=== PATIENT | female | born 1945 | race Caucasian/White ===

== ENCOUNTER 2020-08-07 21:47 | Observation (INO) ==
[2020-08-07] MEDS ORDERED: Ringers Solution, Lactated 1,000 ML IVC SCH (23:45)
[2020-08-07] MEDS ORDERED: Naloxone 0.4 MG/ML INJ IVP PRN (23:49)
[2020-08-07] MEDS ORDERED: Ondansetron 4 MG/2 ML VIAL IVP PRN (23:49)
[2020-08-07] MEDS ORDERED: Acetaminophen 325 MG TABLET PO PRN (23:49)
[2020-08-08] MEDS ORDERED: Ipratropium/Albuterol Neb 3 ML IH PRN (00:43)
[2020-08-08] MEDS ORDERED: Azithromycin 500 MG in 0.9 % Sodium Chloride 250 ML IVPB SCH (01:00)
[2020-08-08 01:17] LABS: Basophils % 0.2 %; Eosinophils % 0.1 %; Hematocrit 34.1 % (35.3-44.9); Hemoglobin 10.5 g/dL (11.5-15.4); Immature Granulocytes % 0.6 % (0-4); Lymphocytes # 1.1 K/mcL (0.6-4.6); Lymphocytes % 6.1 %; Mean Corpuscular HGB Conc 30.8 g/dL (31.6-35.5); Mean Corpuscular Hemoglobin 29.6 pg (28.0-33.3); Mean Corpuscular Volume 96.1 fL (83.0-100.0); Mean Platelet Volume 9.7 fL (9.4-12.4); Monocytes # 1.3 K/mcL (0.0-1.3); Monocytes % 7.5 %; Neutrophils # 15.2 K/mcL (1.6-8.9); Platelet Count 378 K/mcL (140-400); Red Blood Count 3.55 M/mcL (3.82-4.97); Red Cell Distribution Width 13.7 % (11.5-14.5); Segmented Neutrophils % 85.5 %; White Blood Count 17.8 K/mcL (4.3-11.1)
[2020-08-08 01:24] LABS: INR 1.3; Prothrombin Time 14.9 Seconds (9.4-12.1)
[2020-08-08 01:39] LABS: Albumin 2.5 g/dL (3.5-5.7); Albumin/Globulin Ratio 0.6 (1.1-2.2); Bilirubin,Total 0.4 mg/dL (0.3-1.0); Calcium 7.7 mg/dL (8.6-10.3); Chol/HDL Ratio 3.6 (0-4.9); Globulin 4.5 g/dL (2.4-3.5); Magnesium 1.6 mg/dL (1.6-2.6); Potassium 4.2 mEq/L (3.5-5.1)
[2020-08-08 07:49] LABS: Adenovirus Not Detected (Not Detect); Bordetella Pertussis Not Detected (Not Detect); Chlamydophila pneumoniae Not Detected (Not Detect); Coronavirus 229E Not Detected (Not Detect); Coronavirus HKU1 Not Detected (Not Detect); Coronavirus NL63 Not Detected (Not Detect); Coronavirus OC43 Not Detected (Not Detect); Human Metapneumovirus Not Detected (Not Detect); Human Rhinovirus/Enterovirus Not Detected (Not Detect); Influenza A Subtype 2009 H1 Not Detected (Not Detect); Influenza B Not Detected (Not Detect); Mycoplasma pneumoniae Not Detected (Not Detect); Parainfluenza Virus 1 Not Detected (Not Detect); Parainfluenza Virus 2 Not Detected (Not Detect); Parainfluenza Virus 3 Not Detected (Not Detect); Parainfluenza Virus 4 Not Detected (Not Detect); Respiratory Syncytial Virus Not Detected (Not Detect); SARS-CoV-2 Not Detected (Not Detect)
[2020-08-08] MEDS: cefTRIAXone 1,000 MG in Water for inj. (sterile) 10 ML IVP SCH (09:14)
[2020-08-08] MEDS: *HR* OxyCODONE/APAP 10/325 TABLET PO PRN ×2 (09:27→16:57)
[2020-08-08] MEDS: Famotidine 20 MG TABLET PO SCH (09:27)
[2020-08-08] MEDS: carvediloL 25 MG TABLET PO SCH ×2 (09:28→18:13)
[2020-08-08] MEDS: predniSONE 20 MG TABLET PO SCH (10:25)
[2020-08-08] MEDS: Tiotropium 10 INH DOSE IH SCH (11:14)
[2020-08-08] MEDS: Budesonide/Formoterol 160/4.5 1 PUFF INH IH SCH ×2 (11:19→21:29)
[2020-08-08 15:47] LABS: Total Protein 6.1 g/dL (6.4-8.9)
[2020-08-08] MEDS ORDERED: 0.9 % Sodium Chloride 500 ML IV ONE (16:51)
[2020-08-08] MEDS: *HR* Heparin 5,000 UNIT/ML VIAL SQ SCH (18:13)
[2020-08-08] MEDS: Azithromycin 500 MG in 0.9 % Sodium Chloride 250 ML IVPB SCH (18:14)
[2020-08-08] MEDS: Mirtazapine 15 MG TABLET PO SCH (20:15)
[2020-08-08] MEDS: Melatonin 3 MG TABLET PO SCH (20:15)
[2020-08-09 04:29] LABS: Basophils % 0.1 %; Hematocrit 28.1 % (35.3-44.9); Hemoglobin 8.7 g/dL (11.5-15.4); Immature Granulocytes % 0.9 % (0-4); Lymphocytes # 0.7 K/mcL (0.6-4.6); Lymphocytes % 4.1 %; Mean Corpuscular Hemoglobin 29.9 pg (28.0-33.3); Mean Corpuscular Volume 96.6 fL (83.0-100.0); Mean Platelet Volume 9.9 fL (9.4-12.4); Monocytes # 0.8 K/mcL (0.0-1.3); Monocytes % 4.8 %; Neutrophils # 14.2 K/mcL (1.6-8.9); Platelet Count 315 K/mcL (140-400); Red Blood Count 2.91 M/mcL (3.82-4.97); Red Cell Distribution Width 13.7 % (11.5-14.5); Segmented Neutrophils % 90.1 %; White Blood Count 15.8 K/mcL (4.3-11.1)
[2020-08-09 04:44] LABS: Calcium 7.1 mg/dL (8.6-10.3); Potassium 3.9 mEq/L (3.5-5.1)
[2020-08-09] MEDS: *HR* Heparin 5,000 UNIT/ML VIAL SQ SCH ×2 (05:38→18:44)
[2020-08-09 08:48] LABS: VBG Ionized Calcium 1.01 mmol/L (1.15-1.35)
[2020-08-09] MEDS: Famotidine 20 MG TABLET PO SCH (08:56)
[2020-08-09] MEDS: predniSONE 20 MG TABLET PO SCH (08:57)
[2020-08-09] MEDS: carvediloL 25 MG TABLET PO SCH ×2 (08:57→16:41)
[2020-08-09] MEDS: Chlorhexidine Rinse 15 ML MOUTHWASH PO SCH (08:57)
[2020-08-09] MEDS: Aspirin Enteric Coated 81 MG Tablet PO SCH (08:57)
[2020-08-09] MEDS: cefTRIAXone 1,000 MG in Water for inj. (sterile) 10 ML IVP SCH (08:57)
[2020-08-09] MEDS: *HR* OxyCODONE/APAP 10/325 TABLET PO PRN ×2 (09:04→21:55)
[2020-08-09] MEDS: Tiotropium 10 INH DOSE IH SCH (10:18)
[2020-08-09] MEDS: Budesonide/Formoterol 160/4.5 1 PUFF INH IH SCH ×2 (10:19→19:59)
[2020-08-09 17:11] LABS: Bacteria,Urine Few per hpf (None-Few); Bilirubin,Urine Negative (Negative); Blood,Urine Negative (Negative); Clarity,Urine Clear (Clear); Color,Urine Light-Yellow (Yellow); Glucose,Urine (UA) Normal (Normal); Hyaline Casts,Urine Few per lpf (None Seen); Ketones,Urine Negative (Negative); Leukocyte Esterase,Urine Negative (Negative); Mucus,Urine Few per lpf (None-Few); Nitrite,Urine Negative (Negative); PH,Urine 5.5 pH Units (5.0-8.0); Protein,Urine 50 mg/dL (Neg-Trace); RBC,Urine 0-3 per hpf (0-3); Specific Gravity,Urine 1.027 (1.010-1.025); Squamous Epithelial Cell,Urine Few per hpf (None-Few); Urobilinogen,Urine Normal (Normal); WBC,Urine 0-3 per hpf (0-3)
[2020-08-09 17:13] LABS: Protein/Creatinine Ratio,Urine 0.85 mg/mg (0.00-0.20); Sodium, Urine 19.8 mEq/L
[2020-08-09] MEDS: Azithromycin 500 MG in 0.9 % Sodium Chloride 250 ML IVPB SCH (18:43)
[2020-08-09] MEDS: Mirtazapine 15 MG TABLET PO SCH (21:54)
[2020-08-09] MEDS: Melatonin 3 MG TABLET PO SCH (21:54)
[2020-08-10] MEDS: *HR* Heparin 5,000 UNIT/ML VIAL SQ SCH ×2 (05:06→17:23)
[2020-08-10] MEDS: *HR* OxyCODONE/APAP 10/325 TABLET PO PRN ×3 (05:17→23:06)
[2020-08-10 05:19] LABS: Basophils % 0.2 %; Hemoglobin 9.2 g/dL (11.5-15.4); Immature Granulocytes % 1.1 % (0-4); Lymphocytes # 1.1 K/mcL (0.6-4.6); Lymphocytes % 6.7 %; Mean Corpuscular HGB Conc 30.7 g/dL (31.6-35.5); Mean Corpuscular Hemoglobin 29.5 pg (28.0-33.3); Mean Corpuscular Volume 96.2 fL (83.0-100.0); Mean Platelet Volume 9.9 fL (9.4-12.4); Monocytes # 0.9 K/mcL (0.0-1.3); Monocytes % 5.3 %; Neutrophils # 14.4 K/mcL (1.6-8.9); Platelet Count 373 K/mcL (140-400); Red Blood Count 3.12 M/mcL (3.82-4.97); Red Cell Distribution Width 13.8 % (11.5-14.5); Segmented Neutrophils % 86.7 %; White Blood Count 16.6 K/mcL (4.3-11.1)
[2020-08-10 05:39] LABS: BUN/Creatinine Ratio 42 (6-26); Blood Urea Nitrogen 42 mg/dL (8-23); Calcium 8.2 mg/dL (8.6-10.3); Carbon Dioxide 23 mEq/L (23-29); Chloride 106 mEq/L (98-107); Glucose 89 mg/dL (70-105); Osmolality,Calculated 296 (280-300); Potassium 3.9 mEq/L (3.5-5.1); Sodium 138 mEq/L (136-145); eGFR For African Americans > 60 (> 60); eGFR For Non-African Americans 54 (> 60)
[2020-08-10] MEDS: Aspirin Enteric Coated 81 MG Tablet PO SCH (09:26)
[2020-08-10] MEDS: Chlorhexidine Rinse 15 ML MOUTHWASH PO SCH (09:26)
[2020-08-10] MEDS: cefTRIAXone 1,000 MG in Water for inj. (sterile) 10 ML IVP SCH (09:26)
[2020-08-10] MEDS: predniSONE 20 MG TABLET PO SCH (09:27)
[2020-08-10] MEDS: Famotidine 20 MG TABLET PO SCH (09:27)
[2020-08-10] MEDS: carvediloL 25 MG TABLET PO SCH ×2 (09:27→17:17)
[2020-08-10] MEDS: Tiotropium 10 INH DOSE IH SCH (10:56)
[2020-08-10] MEDS: Budesonide/Formoterol 160/4.5 1 PUFF INH IH SCH ×2 (10:56→19:48)
[2020-08-10] MEDS ORDERED: Azithromycin 250 MG TABLET PO SCH (18:00)
[2020-08-10] MEDS: Melatonin 3 MG TABLET PO SCH (20:21)
[2020-08-10] MEDS: Mirtazapine 15 MG TABLET PO SCH (20:21)
[2020-08-11 04:24] LABS: Basophils % 0.1 %; Eosinophils % 0.1 %; Hematocrit 30.6 % (35.3-44.9); Hemoglobin 9.3 g/dL (11.5-15.4); Lymphocytes # 1.5 K/mcL (0.6-4.6); Lymphocytes % 10.2 %; Mean Corpuscular HGB Conc 30.4 g/dL (31.6-35.5); Mean Corpuscular Hemoglobin 29.2 pg (28.0-33.3); Mean Corpuscular Volume 96.2 fL (83.0-100.0); Mean Platelet Volume 9.7 fL (9.4-12.4); Monocytes # 0.9 K/mcL (0.0-1.3); Monocytes % 6.4 %; Neutrophils # 11.7 K/mcL (1.6-8.9); Platelet Count 380 K/mcL (140-400); Red Blood Count 3.18 M/mcL (3.82-4.97); Red Cell Distribution Width 13.7 % (11.5-14.5); Segmented Neutrophils % 82.2 %; White Blood Count 14.3 K/mcL (4.3-11.1)
[2020-08-11 04:42] LABS: Alanine Aminotransferase 45 Units/L (7-52); Albumin 2.3 g/dL (3.5-5.7); Albumin/Globulin Ratio 0.6 (1.1-2.2); Alkaline Phosphatase 57 Units/L (34-104); Aspartate Amino Transferase 89 Units/L (13-39); BUN/Creatinine Ratio 37 (6-26); Bilirubin,Total 0.3 mg/dL (0.3-1.0); Blood Urea Nitrogen 34 mg/dL (8-23); Calcium 8.2 mg/dL (8.6-10.3); Carbon Dioxide 24 mEq/L (23-29); Chloride 106 mEq/L (98-107); Globulin 3.7 g/dL (2.4-3.5); Glucose 86 mg/dL (70-105); Osmolality,Calculated 295 (280-300); Sodium 139 mEq/L (136-145); eGFR For African Americans > 60 (> 60); eGFR For Non-African Americans 60 (> 60)
[2020-08-11] MEDS: *HR* Heparin 5,000 UNIT/ML VIAL SQ SCH ×2 (05:43→17:23)
[2020-08-11] MEDS: Tiotropium 10 INH DOSE IH SCH (07:38)
[2020-08-11] MEDS: Budesonide/Formoterol 160/4.5 1 PUFF INH IH SCH ×2 (07:38→20:06)
[2020-08-11] MEDS: Chlorhexidine Rinse 15 ML MOUTHWASH PO SCH (08:49)
[2020-08-11] MEDS: predniSONE 20 MG TABLET PO SCH (08:49)
[2020-08-11] MEDS: Aspirin Enteric Coated 81 MG Tablet PO SCH (08:50)
[2020-08-11] MEDS: cefTRIAXone 1,000 MG in Water for inj. (sterile) 10 ML IVP SCH (08:50)
[2020-08-11] MEDS: carvediloL 25 MG TABLET PO SCH ×2 (08:50→17:26)
[2020-08-11] MEDS: Famotidine 20 MG TABLET PO SCH (08:50)
[2020-08-11] MEDS: *HR* OxyCODONE/APAP 10/325 TABLET PO PRN ×2 (09:02→21:17)
[2020-08-11] MEDS ORDERED: Isovue-370 500 ML BOTTLE IVP ONE (13:49)
[2020-08-11] MEDS: Piperacillin/Tazobactam 3.375 GM in 0.9 % Sodium Chloride Mini Bag 100 ML IVPB SCH (17:43)
[2020-08-11] MEDS: Melatonin 3 MG TABLET PO SCH (21:12)
[2020-08-11] MEDS: Mirtazapine 15 MG TABLET PO SCH (21:13)
[2020-08-12] MEDS: Piperacillin/Tazobactam 3.375 GM in 0.9 % Sodium Chloride Mini Bag 100 ML IVPB SCH ×2 (00:30→11:20)
[2020-08-12 05:20] LABS: INR 1.1; Prothrombin Time 12.6 Seconds (9.4-12.1)
[2020-08-12 05:23] LABS: Basophils % 0.2 %; Eosinophils % 0.1 %; Hematocrit 31.8 % (35.3-44.9); Hemoglobin 9.6 g/dL (11.5-15.4); Lymphocytes # 1.7 K/mcL (0.6-4.6); Lymphocytes % 12.4 %; Mean Corpuscular HGB Conc 30.2 g/dL (31.6-35.5); Mean Corpuscular Hemoglobin 29.4 pg (28.0-33.3); Mean Corpuscular Volume 97.2 fL (83.0-100.0); Mean Platelet Volume 9.9 fL (9.4-12.4); Monocytes # 1.1 K/mcL (0.0-1.3); Monocytes % 8.2 %; Neutrophils # 10.5 K/mcL (1.6-8.9); Platelet Count 357 K/mcL (140-400); Red Blood Count 3.27 M/mcL (3.82-4.97); Red Cell Distribution Width 13.8 % (11.5-14.5); Segmented Neutrophils % 78.1 %; White Blood Count 13.5 K/mcL (4.3-11.1)
[2020-08-12 05:34] LABS: BUN/Creatinine Ratio 32 (6-26); Blood Urea Nitrogen 31 mg/dL (8-23); Calcium 8.4 mg/dL (8.6-10.3); Carbon Dioxide 27 mEq/L (23-29); Chloride 102 mEq/L (98-107); Glucose 81 mg/dL (70-105); Osmolality,Calculated 290 (280-300); Potassium 3.8 mEq/L (3.5-5.1); Sodium 137 mEq/L (136-145); eGFR For African Americans > 60 (> 60); eGFR For Non-African Americans 56 (> 60)
[2020-08-12] MEDS: *HR* Heparin 5,000 UNIT/ML VIAL SQ SCH ×2 (05:43→17:04)
[2020-08-12] MEDS ORDERED: *HR* EPINEPHrine 1 MG/10 ML SYRINGE INTRATRACH PRN (09:48)
[2020-08-12] MEDS: predniSONE 20 MG TABLET PO SCH (11:19)
[2020-08-12] MEDS: carvediloL 25 MG TABLET PO SCH ×2 (11:19→15:50)
[2020-08-12] MEDS: Aspirin Enteric Coated 81 MG Tablet PO SCH (11:19)
[2020-08-12] MEDS: Famotidine 20 MG TABLET PO SCH (11:19)
[2020-08-12] MEDS: Chlorhexidine Rinse 15 ML MOUTHWASH PO SCH (11:20)
[2020-08-12] MEDS: *HR* OxyCODONE/APAP 10/325 TABLET PO PRN ×2 (11:21→20:26)
[2020-08-12] MEDS: Budesonide/Formoterol 160/4.5 1 PUFF INH IH SCH ×2 (11:51→20:11)
[2020-08-12] MEDS: Tiotropium 10 INH DOSE IH SCH (11:51)
[2020-08-12] MEDS ORDERED: *HR* EPINEPHrine 1 MG/10 ML SYRINGE ONE (12:00)
[2020-08-12] MEDS ORDERED: levoFLOXacin 750 MG TABLET PO SCH (14:00)
[2020-08-12] MEDS: levoFLOXacin 750 MG TABLET PO SCH (14:21)
[2020-08-12] MEDS ORDERED: 0.9 % Sodium Chloride 500 ML IVC ONE (14:30)
[2020-08-12] MEDS ORDERED: 0.9 % Sodium Chloride 1,000 ML IVC SCH (15:45)
[2020-08-12] MEDS ORDERED: 0.9 % Sodium Chloride 500 ML IVC SCH (15:52)
[2020-08-12] MEDS ORDERED: Perflutren Lipid Microsphere 1.3 ML in 0.9 % Sodium Chloride 8.7 ML IVP PRN (18:41)
[2020-08-12 19:32] LABS: Appearance of Body Fluid Cloudy (Clear); Volume of Body Fluid 9 mL
[2020-08-12 19:39] LABS: Appearance of Body Fluid Clear (Clear); Volume of Body Fluid 14 mL
[2020-08-12 20:21] LABS: Appearance of Body Fluid Cloudy (Clear); Volume of Body Fluid 17 mL
[2020-08-12] MEDS ORDERED: Lidocaine -MPF 2% 5 ML VIAL SQ ONE (23:36)
[2020-08-12] MEDS ORDERED: *HR* Succinylcholine 200 MG/10 ML VIAL IVP ONE (23:36)
[2020-08-12] MEDS ORDERED: *HR* Metoprolol 5 MG/5 ML VIAL IVP ONE (23:36)
[2020-08-12] MEDS ORDERED: Lidocaine -MPF 4% 5 ML AMPUL TP ONE (23:36)
[2020-08-12] MEDS ORDERED: *HR* Propofol 200 MG/20 ML VIAL IVP ONE (23:36)
[2020-08-12] MEDS ORDERED: *HR* Phenylephrine 10 MG/ML VIAL IVC ONE (23:36)
[2020-08-13] MEDS: Mirtazapine 15 MG TABLET PO SCH ×2 (00:25→20:13)
[2020-08-13] MEDS: *HR* OxyCODONE/APAP 10/325 TABLET PO PRN ×3 (05:56→20:13)
[2020-08-13] MEDS: *HR* Heparin 5,000 UNIT/ML VIAL SQ SCH ×2 (05:56→17:16)
[2020-08-13 06:57] LABS: Basophils % 0.2 %; Hematocrit 30.5 % (35.3-44.9); Hemoglobin 9.4 g/dL (11.5-15.4); Immature Granulocytes % 1.2 % (0-4); Lymphocytes # 1.6 K/mcL (0.6-4.6); Mean Corpuscular HGB Conc 30.8 g/dL (31.6-35.5); Mean Corpuscular Hemoglobin 28.9 pg (28.0-33.3); Mean Corpuscular Volume 93.8 fL (83.0-100.0); Mean Platelet Volume 9.9 fL (9.4-12.4); Monocytes # 1.3 K/mcL (0.0-1.3); Monocytes % 7.8 %; Neutrophils # 14.1 K/mcL (1.6-8.9); Platelet Count 396 K/mcL (140-400); Red Blood Count 3.25 M/mcL (3.82-4.97); Segmented Neutrophils % 81.8 %; White Blood Count 17.3 K/mcL (4.3-11.1)
[2020-08-13] MEDS: predniSONE 20 MG TABLET PO SCH (07:33)
[2020-08-13] MEDS: Aspirin Enteric Coated 81 MG Tablet PO SCH (07:33)
[2020-08-13] MEDS: carvediloL 25 MG TABLET PO SCH ×2 (07:33→17:15)
[2020-08-13] MEDS: Famotidine 20 MG TABLET PO SCH (07:34)
[2020-08-13] MEDS: Chlorhexidine Rinse 15 ML MOUTHWASH PO SCH (07:34)
[2020-08-13 09:36] LABS: VBG Ionized Calcium 1.04 mmol/L (1.15-1.35)
[2020-08-13] MEDS: Budesonide/Formoterol 160/4.5 1 PUFF INH IH SCH ×2 (10:32→23:00)
[2020-08-13] MEDS: Tiotropium 10 INH DOSE IH SCH (10:33)
[2020-08-13] MEDS: Doxycycline 100 MG CAPSULE PO SCH ×2 (11:28→20:13)
[2020-08-13] MEDS: Melatonin 3 MG TABLET PO SCH (20:14)
[2020-08-14] MEDS: *HR* Heparin 5,000 UNIT/ML VIAL SQ SCH ×2 (05:47→16:54)
[2020-08-14] MEDS: Tiotropium 10 INH DOSE IH SCH (07:51)
[2020-08-14] MEDS: Budesonide/Formoterol 160/4.5 1 PUFF INH IH SCH ×2 (07:51→21:28)
[2020-08-14] MEDS: Doxycycline 100 MG CAPSULE PO SCH ×2 (08:24→21:00)
[2020-08-14] MEDS: *HR* OxyCODONE/APAP 10/325 TABLET PO PRN ×3 (08:24→23:43)
[2020-08-14] MEDS: Famotidine 20 MG TABLET PO SCH (08:24)
[2020-08-14] MEDS: carvediloL 25 MG TABLET PO SCH ×2 (08:25→16:53)
[2020-08-14] MEDS: Aspirin Enteric Coated 81 MG Tablet PO SCH (08:26)
[2020-08-14] MEDS: predniSONE 20 MG TABLET PO SCH (08:27)
[2020-08-14] MEDS ORDERED: NON-FORMULARY MEDICATION 1 EACH EACH (Duloxetine Hcl 60 MG) PO SCH (09:00)
[2020-08-14 09:44] LABS: Basophils % 0.2 %; Eosinophils # 0.1 K/mcL (0.0-0.6); Eosinophils % 0.3 %; Hemoglobin 10.8 g/dL (11.5-15.4); Immature Granulocytes % 1.2 % (0-4); Lymphocytes # 2.4 K/mcL (0.6-4.6); Lymphocytes % 14.1 %; Mean Corpuscular HGB Conc 30.9 g/dL (31.6-35.5); Mean Corpuscular Hemoglobin 28.8 pg (28.0-33.3); Mean Corpuscular Volume 93.3 fL (83.0-100.0); Mean Platelet Volume 9.9 fL (9.4-12.4); Monocytes # 1.4 K/mcL (0.0-1.3); Monocytes % 8.3 %; Neutrophils # 12.8 K/mcL (1.6-8.9); Platelet Count 427 K/mcL (140-400); Red Blood Count 3.75 M/mcL (3.82-4.97); Red Cell Distribution Width 13.9 % (11.5-14.5); Segmented Neutrophils % 75.9 %; White Blood Count 16.9 K/mcL (4.3-11.1)
[2020-08-14] MEDS: predniSONE 10 MG TABLET PO SCH (12:33)
[2020-08-14] MEDS: levoFLOXacin 750 MG TABLET PO SCH (12:41)
[2020-08-14] MEDS: Chlorhexidine Rinse 15 ML MOUTHWASH PO SCH (12:41)
[2020-08-14] MEDS ORDERED: Furosemide 20 MG/2 ML VIAL IVP ONE (16:08)
[2020-08-14] MEDS: Melatonin 3 MG TABLET PO SCH (21:00)
[2020-08-14] MEDS: Mirtazapine 15 MG TABLET PO SCH (21:01)
[2020-08-15 01:53] LABS: Basophils % 0.1 %; Hematocrit 30.9 % (35.3-44.9); Hemoglobin 9.7 g/dL (11.5-15.4); Immature Granulocytes % 1.7 % (0-4); Lymphocytes # 1.2 K/mcL (0.6-4.6); Lymphocytes % 8.7 %; Mean Corpuscular HGB Conc 31.4 g/dL (31.6-35.5); Mean Corpuscular Hemoglobin 29.3 pg (28.0-33.3); Mean Corpuscular Volume 93.4 fL (83.0-100.0); Mean Platelet Volume 9.7 fL (9.4-12.4); Monocytes # 1.1 K/mcL (0.0-1.3); Monocytes % 7.5 %; Neutrophils # 11.7 K/mcL (1.6-8.9); Platelet Count 379 K/mcL (140-400); Red Blood Count 3.31 M/mcL (3.82-4.97); Red Cell Distribution Width 13.9 % (11.5-14.5); White Blood Count 14.2 K/mcL (4.3-11.1)
[2020-08-15] MEDS: *HR* Heparin 5,000 UNIT/ML VIAL SQ SCH (05:50)
[2020-08-15] MEDS: *HR* OxyCODONE/APAP 10/325 TABLET PO PRN (05:50)
[2020-08-15] MEDS: Budesonide/Formoterol 160/4.5 1 PUFF INH IH SCH (08:10)
[2020-08-15] MEDS: Tiotropium 10 INH DOSE IH SCH (08:13)
[2020-08-15] MEDS: Chlorhexidine Rinse 15 ML MOUTHWASH PO SCH (08:55)
[2020-08-15] MEDS: carvediloL 25 MG TABLET PO SCH ×2 (08:55→17:12)
[2020-08-15] MEDS: Aspirin Enteric Coated 81 MG Tablet PO SCH (08:55)
[2020-08-15] MEDS: predniSONE 10 MG TABLET PO SCH (08:56)
[2020-08-15] MEDS: Doxycycline 100 MG CAPSULE PO SCH (08:56)
[2020-08-15] MEDS ORDERED: lisinopriL 5 MG TABLET PO SCH (09:00)
[2020-08-15] MEDS ORDERED: Famotidine 20 MG TABLET PO SCH (09:00)
[2020-08-15 10:49] VITALS: BP 108/71
== END 2020-08-15 17:50 | disposition home health service (06) ==
LOC: 3ANU → UNMERGE 23:35 → SUATTDRO 23:35 → MERGE 23:35
PROVIDERS: ADMIT Student in an Organized Health Care Education/Training Program; ATTEND Internal Medicine

== ENCOUNTER 2020-08-22 22:08 | Inpatient (IN) ==
[2020-08-22] MEDS ORDERED: Naloxone 0.4 MG/ML INJ IVP PRN (23:53)
[2020-08-22] MEDS ORDERED: Ondansetron ODT 4 MG TAB.RAPDIS SL PRN (23:53)
[2020-08-23] MEDS ORDERED: Ipratropium/Albuterol Neb 3 ML IH PRN (01:53)
[2020-08-23] MEDS ORDERED: levoFLOXacin 750 MG/150 ML 750 MG/150 ML BAG IVPB SCH (02:00)
[2020-08-23 02:09] LABS: Adenovirus Not Detected (Not Detect); Bordetella Pertussis Not Detected (Not Detect); Chlamydophila pneumoniae Not Detected (Not Detect); Coronavirus 229E Not Detected (Not Detect); Coronavirus HKU1 Not Detected (Not Detect); Coronavirus NL63 Not Detected (Not Detect); Coronavirus OC43 Not Detected (Not Detect); Human Metapneumovirus Not Detected (Not Detect); Human Rhinovirus/Enterovirus Not Detected (Not Detect); Influenza A Subtype 2009 H1 Not Detected (Not Detect); Influenza B Not Detected (Not Detect); Mycoplasma pneumoniae Not Detected (Not Detect); Parainfluenza Virus 1 Not Detected (Not Detect); Parainfluenza Virus 2 Not Detected (Not Detect); Parainfluenza Virus 3 Not Detected (Not Detect); Parainfluenza Virus 4 Not Detected (Not Detect); Respiratory Syncytial Virus Not Detected (Not Detect); SARS-CoV-2 Not Detected (Not Detect)
[2020-08-23] MEDS: 0.9 % Sodium Chloride 1,000 ML IVC SCH ×2 (03:00→18:44)
[2020-08-23] MEDS: Acetaminophen 325 MG TABLET PO PRN (04:51)
[2020-08-23] MEDS: MethylPREDNISolone 40 MG/ML VIAL IVP SCH ×2 (05:54→18:45)
[2020-08-23] MEDS ORDERED: Piperacillin/Tazobactam 3.375 GM in 0.9 % Sodium Chloride Mini Bag 100 ML IVPB SCH (06:00)
[2020-08-23] MEDS ORDERED: 0.9 % Sodium Chloride 500 ML IVC ONE (08:01)
[2020-08-23] MEDS ORDERED: Albuterol 2.5 MG/3 ML NEBULIZER IH PRN (08:02)
[2020-08-23 08:10] LABS: Basophils % 0.1 %; Hematocrit 33.3 % (35.3-44.9); Hemoglobin 10.5 g/dL (11.5-15.4); Immature Granulocytes % 0.5 % (0-4); Lymphocytes # 0.5 K/mcL (0.6-4.6); Lymphocytes % 2.3 %; Mean Corpuscular HGB Conc 31.5 g/dL (31.6-35.5); Mean Corpuscular Volume 95.1 fL (83.0-100.0); Mean Platelet Volume 10.1 fL (9.4-12.4); Monocytes # 0.8 K/mcL (0.0-1.3); Monocytes % 3.8 %; Neutrophils # 20.3 K/mcL (1.6-8.9); Platelet Count 307 K/mcL (140-400); Red Cell Distribution Width 14.8 % (11.5-14.5); Segmented Neutrophils % 93.3 %; White Blood Count 21.7 K/mcL (4.3-11.1)
[2020-08-23 08:21] LABS: Albumin/Globulin Ratio 0.9 (1.1-2.2); Bilirubin,Total 0.8 mg/dL (0.3-1.0); Calcium 7.6 mg/dL (8.6-10.3); Chol/HDL Ratio 2.3 (0-4.9); Globulin 2.3 g/dL (2.4-3.5); Magnesium 1.8 mg/dL (1.6-2.6); Phosphorous 4.3 mg/dL (2.7-4.5); Potassium 4.9 mEq/L (3.5-5.1); Thyroid Stimulating Hormone 1.682 mcIU/mL (0.340-5.600); Total Protein 4.3 g/dL (6.4-8.9); Troponin I 0.04 ng/mL (< 0.04)
[2020-08-23] MEDS: Ipratropium/Albuterol Neb 3 ML IH SCH ×4 (14:27→23:07)
[2020-08-23] MEDS: Piperacillin/Tazobactam 3.375 GM in 0.9 % Sodium Chloride Mini Bag 100 ML IVPB SCH (15:42)
[2020-08-23] MEDS: *HR* OxyCODONE/APAP 10/325 TABLET PO PRN (18:44)
[2020-08-23] MEDS: Budesonide/Formoterol 160/4.5 1 PUFF INH IH SCH (19:49)
[2020-08-23] MEDS: Mirtazapine 15 MG TABLET PO SCH (20:32)
[2020-08-24 00:38] LABS: Basophils % 0.1 %; Hematocrit 30.4 % (35.3-44.9); Hemoglobin 9.6 g/dL (11.5-15.4); Immature Granulocytes % 0.4 % (0-4); Lymphocytes # 0.4 K/mcL (0.6-4.6); Lymphocytes % 2.1 %; Mean Corpuscular HGB Conc 31.6 g/dL (31.6-35.5); Mean Platelet Volume 10.1 fL (9.4-12.4); Monocytes # 0.2 K/mcL (0.0-1.3); Monocytes % 1.4 %; Neutrophils # 16.4 K/mcL (1.6-8.9); Platelet Count 249 K/mcL (140-400); Red Cell Distribution Width 14.9 % (11.5-14.5)
[2020-08-24 00:57] LABS: Albumin 2.2 g/dL (3.5-5.7); Albumin/Globulin Ratio 0.8 (1.1-2.2); Bilirubin,Total 0.9 mg/dL (0.3-1.0); Globulin 2.7 g/dL (2.4-3.5); Potassium 4.5 mEq/L (3.5-5.1); Total Protein 4.9 g/dL (6.4-8.9)
[2020-08-24] MEDS: *HR* OxyCODONE/APAP 10/325 TABLET PO PRN ×2 (03:06→17:43)
[2020-08-24] MEDS: Piperacillin/Tazobactam 3.375 GM in 0.9 % Sodium Chloride Mini Bag 100 ML IVPB SCH ×2 (03:07→15:47)
[2020-08-24] MEDS: Ipratropium/Albuterol Neb 3 ML IH SCH ×2 (03:12→07:31)
[2020-08-24] MEDS: MethylPREDNISolone 40 MG/ML VIAL IVP SCH (05:57)
[2020-08-24] MEDS: Budesonide/Formoterol 160/4.5 1 PUFF INH IH SCH ×2 (07:31→20:36)
[2020-08-24] MEDS ORDERED: TIOTROPIUM 18 MCG PO SCH (09:00)
[2020-08-24] MEDS: Aspirin Enteric Coated 81 MG Tablet PO SCH (09:29)
[2020-08-24] MEDS: carvediloL 6.25 MG TABLET PO SCH ×2 (09:29→17:43)
[2020-08-24] MEDS: Famotidine 20 MG TABLET PO SCH (09:29)
[2020-08-24] MEDS: Folic Acid 1 MG TABLET PO SCH (09:30)
[2020-08-24] MEDS ORDERED: levoFLOXacin 500 MG/100 ML 500 MG/100 ML BAG IVPB SCH (12:00)
[2020-08-24] MEDS: Levalbuterol Neb 1.25 MG/3 ML IH SCH ×5 (12:26→20:35)
[2020-08-24] MEDS: Ipratropium Neb 0.5 MG NEBULIZER IH SCH ×5 (12:27→20:35)
[2020-08-24] MEDS: 0.9 % Sodium Chloride 1,000 ML IVC SCH (12:45)
[2020-08-24] MEDS: Acetaminophen 325 MG TABLET PO PRN (13:15)
[2020-08-24] MEDS: Mirtazapine 15 MG TABLET PO SCH (21:14)
[2020-08-25] MEDS: Ipratropium Neb 0.5 MG NEBULIZER IH SCH ×7 (00:02→23:12)
[2020-08-25] MEDS: Levalbuterol Neb 1.25 MG/3 ML IH SCH ×7 (00:03→23:12)
[2020-08-25] MEDS: *HR* OxyCODONE/APAP 10/325 TABLET PO PRN ×2 (03:12→15:15)
[2020-08-25] MEDS: Piperacillin/Tazobactam 3.375 GM in 0.9 % Sodium Chloride Mini Bag 100 ML IVPB SCH ×3 (04:12→23:04)
[2020-08-25 06:17] LABS: Basophils % 0.1 %; Eosinophils % 0.2 %; Hematocrit 29.5 % (35.3-44.9); Hemoglobin 8.9 g/dL (11.5-15.4); Immature Granulocytes % 0.6 % (0-4); Lymphocytes # 1.5 K/mcL (0.6-4.6); Lymphocytes % 8.3 %; Mean Corpuscular HGB Conc 30.2 g/dL (31.6-35.5); Mean Corpuscular Hemoglobin 28.5 pg (28.0-33.3); Mean Corpuscular Volume 94.6 fL (83.0-100.0); Mean Platelet Volume 10.2 fL (9.4-12.4); Monocytes # 1.2 K/mcL (0.0-1.3); Monocytes % 6.8 %; Neutrophils # 14.7 K/mcL (1.6-8.9); Platelet Count 214 K/mcL (140-400); Red Blood Count 3.12 M/mcL (3.82-4.97); Red Cell Distribution Width 15.2 % (11.5-14.5); White Blood Count 17.5 K/mcL (4.3-11.1)
[2020-08-25 06:36] LABS: Albumin 2.3 g/dL (3.5-5.7); Albumin/Globulin Ratio 0.9 (1.1-2.2); Bilirubin,Total 0.6 mg/dL (0.3-1.0); Calcium 6.5 mg/dL (8.6-10.3); Globulin 2.5 g/dL (2.4-3.5); Total Protein 4.8 g/dL (6.4-8.9)
[2020-08-25] MEDS: Budesonide/Formoterol 160/4.5 1 PUFF INH IH SCH ×2 (08:05→20:10)
[2020-08-25] MEDS: Aspirin Enteric Coated 81 MG Tablet PO SCH (09:36)
[2020-08-25] MEDS: carvediloL 6.25 MG TABLET PO SCH ×3 (09:36→17:23)
[2020-08-25] MEDS: Folic Acid 1 MG TABLET PO SCH (09:36)
[2020-08-25] MEDS: predniSONE 20 MG TABLET PO SCH (09:37)
[2020-08-25] MEDS: Famotidine 20 MG TABLET PO SCH (09:37)
[2020-08-25] MEDS ORDERED: *HR* OxyCODONE/APAP 5/325 TABLET PO ONE (16:54)
[2020-08-25] MEDS: lisinopriL 5 MG TABLET PO SCH (17:23)
[2020-08-25] MEDS: Mirtazapine 15 MG TABLET PO SCH (20:51)
[2020-08-25 22:02] LABS: Bilirubin,Urine Negative (Negative); Blood,Urine Negative (Negative); Budding Yeast,Urine Many per hpf (None Seen); Clarity,Urine Clear (Clear); Color,Urine Light-Yellow (Yellow); Glucose,Urine (UA) 70 mg/dL (Normal); Ketones,Urine Negative (Negative); Leukocyte Esterase,Urine Negative (Negative); Mucus,Urine Few per lpf (None-Few); Nitrite,Urine Negative (Negative); Protein,Urine 30 mg/dL (Neg-Trace); Specific Gravity,Urine 1.022 (1.010-1.025); Squamous Epithelial Cell,Urine Few per hpf (None-Few); Urobilinogen,Urine Normal (Normal)
[2020-08-25] MEDS: Melatonin 3 MG TABLET PO SCH (23:03)
[2020-08-26] MEDS: *HR* OxyCODONE/APAP 10/325 TABLET PO PRN ×3 (02:33→19:56)
[2020-08-26 03:30] LABS: Basophils % 0.1 %; Hematocrit 29.3 % (35.3-44.9); Hemoglobin 9.3 g/dL (11.5-15.4); Immature Granulocytes % 0.4 % (0-4); Lymphocytes # 0.8 K/mcL (0.6-4.6); Lymphocytes % 4.1 %; Mean Corpuscular HGB Conc 31.7 g/dL (31.6-35.5); Mean Corpuscular Hemoglobin 30.4 pg (28.0-33.3); Mean Corpuscular Volume 95.8 fL (83.0-100.0); Mean Platelet Volume 10.4 fL (9.4-12.4); Monocytes % 5.1 %; Neutrophils # 17.5 K/mcL (1.6-8.9); Platelet Count 180 K/mcL (140-400); Red Blood Count 3.06 M/mcL (3.82-4.97); Red Cell Distribution Width 15.2 % (11.5-14.5); Segmented Neutrophils % 90.3 %; White Blood Count 19.4 K/mcL (4.3-11.1)
[2020-08-26 03:48] LABS: Albumin 2.4 g/dL (3.5-5.7); Albumin/Globulin Ratio 0.9 (1.1-2.2); Bilirubin,Total 0.5 mg/dL (0.3-1.0); Calcium 7.1 mg/dL (8.6-10.3); Globulin 2.6 g/dL (2.4-3.5); Potassium 3.9 mEq/L (3.5-5.1)
[2020-08-26] MEDS: Levalbuterol Neb 1.25 MG/3 ML IH SCH ×6 (04:22→23:24)
[2020-08-26] MEDS: Ipratropium Neb 0.5 MG NEBULIZER IH SCH ×6 (04:22→23:24)
[2020-08-26] MEDS: Piperacillin/Tazobactam 3.375 GM in 0.9 % Sodium Chloride Mini Bag 100 ML IVPB SCH ×2 (07:42→18:07)
[2020-08-26] MEDS: predniSONE 20 MG TABLET PO SCH (07:43)
[2020-08-26] MEDS: Aspirin Enteric Coated 81 MG Tablet PO SCH (07:43)
[2020-08-26] MEDS: Famotidine 20 MG TABLET PO SCH (07:43)
[2020-08-26] MEDS: Folic Acid 1 MG TABLET PO SCH (07:43)
[2020-08-26] MEDS: lisinopriL 5 MG TABLET PO SCH (10:16)
[2020-08-26] MEDS: carvediloL 6.25 MG TABLET PO SCH ×3 (11:36→18:14)
[2020-08-26] MEDS: Budesonide/Formoterol 160/4.5 1 PUFF INH IH SCH ×2 (12:11→20:24)
[2020-08-26] MEDS: levoFLOXacin 750 MG/150 ML 750 MG/150 ML BAG IVPB SCH (16:36)
[2020-08-26] MEDS: Melatonin 3 MG TABLET PO SCH (21:03)
[2020-08-26] MEDS: Mirtazapine 15 MG TABLET PO SCH (21:04)
[2020-08-27] MEDS: Piperacillin/Tazobactam 3.375 GM in 0.9 % Sodium Chloride Mini Bag 100 ML IVPB SCH ×4 (00:06→22:46)
[2020-08-27] MEDS: *HR* OxyCODONE/APAP 10/325 TABLET PO PRN ×4 (02:58→22:47)
[2020-08-27] MEDS: Ipratropium Neb 0.5 MG NEBULIZER IH SCH ×5 (04:25→20:22)
[2020-08-27] MEDS: Levalbuterol Neb 1.25 MG/3 ML IH SCH ×5 (04:25→20:22)
[2020-08-27 07:01] LABS: Basophils % 0.1 %; Eosinophils % 0.1 %; Immature Granulocytes % 0.6 % (0-4); Monocytes # 1.2 K/mcL (0.0-1.3); Monocytes % 8.1 %
[2020-08-27 07:03] LABS: Hematocrit 23.7 % (35.3-44.9); Lymphocytes # 1.2 K/mcL (0.6-4.6); Mean Corpuscular HGB Conc 31.6 g/dL (31.6-35.5); Mean Corpuscular Hemoglobin 29.8 pg (28.0-33.3); Mean Platelet Volume 10.5 fL (9.4-12.4); Neutrophils # 12.4 K/mcL (1.6-8.9); Platelet Count 130 K/mcL (140-400); Red Blood Count 2.52 M/mcL (3.82-4.97); Red Cell Distribution Width 15.6 % (11.5-14.5); Segmented Neutrophils % 83.1 %; White Blood Count 14.9 K/mcL (4.3-11.1)
[2020-08-27 07:11] LABS: Hemoglobin 7.5 g/dL (11.5-15.4)
[2020-08-27] MEDS: Folic Acid 1 MG TABLET PO SCH (07:37)
[2020-08-27] MEDS: Budesonide/Formoterol 160/4.5 1 PUFF INH IH SCH ×2 (07:37→20:22)
[2020-08-27] MEDS: Aspirin Enteric Coated 81 MG Tablet PO SCH (07:38)
[2020-08-27] MEDS: carvediloL 6.25 MG TABLET PO SCH ×2 (07:38→17:57)
[2020-08-27] MEDS: Famotidine 20 MG TABLET PO SCH (07:38)
[2020-08-27 07:50] LABS: BUN/Creatinine Ratio 32 (6-26); Blood Urea Nitrogen 33 mg/dL (8-23); Calcium 7.6 mg/dL (8.6-10.3); Carbon Dioxide 24 mEq/L (23-29); Chloride 110 mEq/L (98-107); Glucose 114 mg/dL (70-105); Magnesium 1.6 mg/dL (1.6-2.6); Osmolality,Calculated 298 (280-300); Potassium 3.6 mEq/L (3.5-5.1); Sodium 140 mEq/L (136-145); eGFR For African Americans > 60 (> 60); eGFR For Non-African Americans 53 (> 60)
[2020-08-27] MEDS ORDERED: predniSONE 20 MG TABLET PO SCH (09:00)
[2020-08-27 13:24] LABS: Hematocrit 25.4 % (35.3-44.9); Hemoglobin 7.9 g/dL (11.5-15.4); Mean Corpuscular HGB Conc 31.1 g/dL (31.6-35.5); Mean Corpuscular Hemoglobin 29.4 pg (28.0-33.3); Mean Corpuscular Volume 94.4 fL (83.0-100.0); Mean Platelet Volume 11.2 fL (9.4-12.4); Platelet Count 128 K/mcL (140-400); Red Blood Count 2.69 M/mcL (3.82-4.97); Red Cell Distribution Width 15.5 % (11.5-14.5); White Blood Count 14.2 K/mcL (4.3-11.1)
[2020-08-27] MEDS: Melatonin 3 MG TABLET PO SCH (20:37)
[2020-08-27] MEDS: Mirtazapine 15 MG TABLET PO SCH (20:37)
[2020-08-27] MEDS: Acetaminophen 325 MG TABLET PO PRN (20:40)
[2020-08-28] MEDS ORDERED: Levalbuterol Neb 1.25 MG/3 ML IH PRN (00:16)
[2020-08-28] MEDS ORDERED: Ipratropium Neb 0.5 MG NEBULIZER IH PRN (00:17)
[2020-08-28] MEDS: Levalbuterol Neb 1.25 MG/3 ML IH SCH (00:19)
[2020-08-28] MEDS: Ipratropium Neb 0.5 MG NEBULIZER IH SCH (00:19)
[2020-08-28] MEDS: Piperacillin/Tazobactam 3.375 GM in 0.9 % Sodium Chloride Mini Bag 100 ML IVPB SCH ×3 (05:58→23:18)
[2020-08-28] MEDS: predniSONE 20 MG TABLET PO SCH (08:38)
[2020-08-28] MEDS: *HR* OxyCODONE/APAP 10/325 TABLET PO PRN ×3 (08:38→22:32)
[2020-08-28] MEDS: Famotidine 20 MG TABLET PO SCH (08:39)
[2020-08-28] MEDS: Folic Acid 1 MG TABLET PO SCH (08:39)
[2020-08-28] MEDS: Aspirin Enteric Coated 81 MG Tablet PO SCH (08:39)
[2020-08-28] MEDS: carvediloL 6.25 MG TABLET PO SCH ×2 (08:39→16:54)
[2020-08-28 08:57] LABS: Basophils % 0.1 %; Red Cell Distribution Width 15.5 % (11.5-14.5)
[2020-08-28 08:59] LABS: Eosinophils # 0.1 K/mcL (0.0-0.6); Eosinophils % 0.7 %; Hematocrit 26.8 % (35.3-44.9); Hemoglobin 8.6 g/dL (11.5-15.4); Immature Granulocytes % 0.8 % (0-4); Immature Platelets 5.5 % (1.1-6.1); Lymphocytes # 2.1 K/mcL (0.6-4.6); Lymphocytes % 14.9 %; Mean Corpuscular HGB Conc 32.1 g/dL (31.6-35.5); Mean Corpuscular Hemoglobin 29.5 pg (28.0-33.3); Mean Corpuscular Volume 91.8 fL (83.0-100.0); Mean Platelet Volume 10.4 fL (9.4-12.4); Monocytes % 7.1 %; Neutrophils # 10.5 K/mcL (1.6-8.9); Platelet Count 100 K/mcL (140-400); Red Blood Count 2.92 M/mcL (3.82-4.97); Segmented Neutrophils % 76.4 %; White Blood Count 13.8 K/mcL (4.3-11.1)
[2020-08-28 09:05] LABS: Calcium 7.8 mg/dL (8.6-10.3); Potassium 4.2 mEq/L (3.5-5.1)
[2020-08-28] MEDS: Budesonide/Formoterol 160/4.5 1 PUFF INH IH SCH ×2 (11:23→23:30)
[2020-08-28] MEDS: levoFLOXacin 750 MG/150 ML 750 MG/150 ML BAG IVPB SCH (14:32)
[2020-08-28] MEDS: Melatonin 3 MG TABLET PO SCH (20:05)
[2020-08-28] MEDS: Mirtazapine 15 MG TABLET PO SCH (20:05)
[2020-08-28] MEDS ORDERED: Ringers Solution, Lactated 500 ML IVC SCH (21:30)
[2020-08-29] MEDS ORDERED: *HR* Metoprolol 5 MG/5 ML VIAL IVP ONE (04:03)
[2020-08-29] MEDS: *HR* OxyCODONE/APAP 10/325 TABLET PO PRN ×2 (05:48→17:12)
[2020-08-29] MEDS: Piperacillin/Tazobactam 3.375 GM in 0.9 % Sodium Chloride Mini Bag 100 ML IVPB SCH ×3 (06:51→23:13)
[2020-08-29] MEDS: Budesonide/Formoterol 160/4.5 1 PUFF INH IH SCH ×2 (08:46→22:55)
[2020-08-29 09:01] LABS: BUN/Creatinine Ratio 28 (6-26); Blood Urea Nitrogen 27 mg/dL (8-23); Calcium 7.4 mg/dL (8.6-10.3); Carbon Dioxide 22 mEq/L (23-29); Chloride 108 mEq/L (98-107); Glucose 91 mg/dL (70-105); Osmolality,Calculated 291 (280-300); Potassium 3.7 mEq/L (3.5-5.1); Sodium 138 mEq/L (136-145); eGFR For African Americans > 60 (> 60); eGFR For Non-African Americans 56 (> 60)
[2020-08-29] MEDS: Aspirin Enteric Coated 81 MG Tablet PO SCH (09:06)
[2020-08-29] MEDS: Famotidine 20 MG TABLET PO SCH (09:06)
[2020-08-29] MEDS: carvediloL 6.25 MG TABLET PO SCH ×2 (09:06→17:12)
[2020-08-29] MEDS: lisinopriL 5 MG TABLET PO SCH (09:06)
[2020-08-29] MEDS: Folic Acid 1 MG TABLET PO SCH (09:07)
[2020-08-29] MEDS: predniSONE 20 MG TABLET PO SCH (09:07)
[2020-08-29 10:43] LABS: Basophils % 0.1 %; Eosinophils # 0.1 K/mcL (0.0-0.6); Eosinophils % 0.8 %; Hematocrit 26.1 % (35.3-44.9); Hemoglobin 8.4 g/dL (11.5-15.4); Immature Granulocytes % 0.8 % (0-4); Lymphocytes # 2.1 K/mcL (0.6-4.6); Lymphocytes % 14.1 %; Mean Corpuscular HGB Conc 32.2 g/dL (31.6-35.5); Mean Corpuscular Hemoglobin 29.4 pg (28.0-33.3); Mean Corpuscular Volume 91.3 fL (83.0-100.0); Mean Platelet Volume 10.3 fL (9.4-12.4); Monocytes # 1.3 K/mcL (0.0-1.3); Monocytes % 9.1 %; Neutrophils # 10.9 K/mcL (1.6-8.9); Platelet Count 111 K/mcL (140-400); Red Blood Count 2.86 M/mcL (3.82-4.97); Red Cell Distribution Width 15.3 % (11.5-14.5); Segmented Neutrophils % 75.1 %; White Blood Count 14.5 K/mcL (4.3-11.1)
[2020-08-29] MEDS: Fluconazole 100 MG TABLET PO SCH (18:54)
[2020-08-29] MEDS: Melatonin 3 MG TABLET PO SCH (19:52)
[2020-08-29] MEDS: Mirtazapine 15 MG TABLET PO SCH (19:52)
[2020-08-30 01:25] LABS: Basophils % 0.2 %
[2020-08-30 01:27] LABS: Eosinophils % 0.2 %; Hematocrit 22.7 % (35.3-44.9); Hemoglobin 7.3 g/dL (11.5-15.4); Immature Platelets 4.5 % (1.1-6.1); Lymphocytes # 1.4 K/mcL (0.6-4.6); Lymphocytes % 11.2 %; Mean Corpuscular HGB Conc 32.2 g/dL (31.6-35.5); Mean Corpuscular Hemoglobin 29.6 pg (28.0-33.3); Mean Corpuscular Volume 91.9 fL (83.0-100.0); Monocytes % 7.8 %; Neutrophils # 9.9 K/mcL (1.6-8.9); Platelet Count 117 K/mcL (140-400); Red Blood Count 2.47 M/mcL (3.82-4.97); Red Cell Distribution Width 15.3 % (11.5-14.5); Segmented Neutrophils % 79.6 %; White Blood Count 12.4 K/mcL (4.3-11.1)
[2020-08-30 01:35] LABS: BUN/Creatinine Ratio 33 (6-26); Blood Urea Nitrogen 31 mg/dL (8-23); Calcium 7.4 mg/dL (8.6-10.3); Carbon Dioxide 24 mEq/L (23-29); Chloride 109 mEq/L (98-107); Glucose 81 mg/dL (70-105); Osmolality,Calculated 294 (280-300); Potassium 4.2 mEq/L (3.5-5.1); Sodium 139 mEq/L (136-145); eGFR For African Americans > 60 (> 60); eGFR For Non-African Americans 59 (> 60)
[2020-08-30] MEDS: Piperacillin/Tazobactam 3.375 GM in 0.9 % Sodium Chloride Mini Bag 100 ML IVPB SCH ×3 (06:38→23:51)
[2020-08-30] MEDS: Aspirin Enteric Coated 81 MG Tablet PO SCH (07:50)
[2020-08-30] MEDS: Famotidine 20 MG TABLET PO SCH (07:50)
[2020-08-30] MEDS: carvediloL 6.25 MG TABLET PO SCH ×2 (07:51→16:58)
[2020-08-30] MEDS: Folic Acid 1 MG TABLET PO SCH (07:51)
[2020-08-30] MEDS: Fluconazole 100 MG TABLET PO SCH (07:51)
[2020-08-30] MEDS: lisinopriL 5 MG TABLET PO SCH (07:51)
[2020-08-30] MEDS: predniSONE 10 MG TABLET PO SCH (07:59)
[2020-08-30] MEDS: Budesonide/Formoterol 160/4.5 1 PUFF INH IH SCH ×2 (08:31→19:45)
[2020-08-30] MEDS: *HR* OxyCODONE/APAP 10/325 TABLET PO PRN ×3 (08:53→21:09)
[2020-08-30 08:59] LABS: Hematocrit 26.6 % (35.3-44.9); Hemoglobin 8.3 g/dL (11.5-15.4)
[2020-08-30] MEDS: levoFLOXacin 750 MG/150 ML 750 MG/150 ML BAG IVPB SCH (16:58)
[2020-08-30] MEDS: Melatonin 3 MG TABLET PO SCH (21:09)
[2020-08-30] MEDS: Mirtazapine 15 MG TABLET PO SCH (21:11)
[2020-08-31 05:06] LABS: Basophils % 0.2 %; Eosinophils # 0.1 K/mcL (0.0-0.6); Lymphocytes # 1.8 K/mcL (0.6-4.6); Lymphocytes % 15.9 %; Mean Corpuscular HGB Conc 30.4 g/dL (31.6-35.5); Mean Corpuscular Hemoglobin 29.2 pg (28.0-33.3); Mean Corpuscular Volume 95.8 fL (83.0-100.0); Mean Platelet Volume 10.4 fL (9.4-12.4); Monocytes # 1.1 K/mcL (0.0-1.3); Monocytes % 9.5 %; Platelet Count 160 K/mcL (140-400); Red Cell Distribution Width 16.1 % (11.5-14.5); Segmented Neutrophils % 72.4 %; White Blood Count 11.1 K/mcL (4.3-11.1)
[2020-08-31 06:31] LABS: BUN/Creatinine Ratio 24 (6-26); Blood Urea Nitrogen 24 mg/dL (8-23); Calcium 7.6 mg/dL (8.6-10.3); Carbon Dioxide 28 mEq/L (23-29); Chloride 105 mEq/L (98-107); Glucose 98 mg/dL (70-105); Osmolality,Calculated 290 (280-300); Potassium 4.1 mEq/L (3.5-5.1); Sodium 138 mEq/L (136-145); eGFR For African Americans > 60 (> 60); eGFR For Non-African Americans 55 (> 60)
[2020-08-31] MEDS: lisinopriL 5 MG TABLET PO SCH (07:44)
[2020-08-31] MEDS: carvediloL 6.25 MG TABLET PO SCH (07:44)
[2020-08-31] MEDS: Fluconazole 100 MG TABLET PO SCH (07:44)
[2020-08-31] MEDS: Famotidine 20 MG TABLET PO SCH (07:44)
[2020-08-31] MEDS: predniSONE 10 MG TABLET PO SCH (07:44)
[2020-08-31] MEDS: Aspirin Enteric Coated 81 MG Tablet PO SCH (07:45)
[2020-08-31] MEDS: Folic Acid 1 MG TABLET PO SCH (07:45)
[2020-08-31] MEDS: Budesonide/Formoterol 160/4.5 1 PUFF INH IH SCH (07:57)
[2020-08-31 08:25] LABS: Hematocrit 24.2 % (35.3-44.9); Hemoglobin 7.6 g/dL (11.5-15.4)
[2020-08-31] MEDS ORDERED: Doxycycline 100 MG CAPSULE PO SCH (09:00)
[2020-08-31 10:31] VITALS: BP 125/88
[2020-08-31] MEDS ORDERED: predniSONE 10 MG TABLET PO ONE (11:18)
[2020-08-31 12:34] LABS: Influenza A PCR Negative (Negative); Influenza B PCR Negative (Negative); Resp. Syncytial Virus PCR Negative (Negative)
[2020-08-31 12:35] LABS: SARS-CoV-2 by PCR (In House) Negative (Negative)
[2020-08-31] MEDS: *HR* OxyCODONE/APAP 10/325 TABLET PO PRN (12:43)
[2020-09-01] MEDS ORDERED: Fluconazole 100 MG TABLET PO SCH (09:00)
[2020-09-01] MEDS ORDERED: predniSONE 20 MG TABLET PO SCH (09:00)
== END 2020-08-31 15:14 | disposition other institution (70) | DRG 871 ==
LOC: CDU → SUATTDRO 23:37 → 3BNU 08-30 15:22
PROVIDERS: ADMIT Student in an Organized Health Care Education/Training Program; ATTEND Internal Medicine